=== PATIENT | female | born 1965 | race Caucasian/White ===

== ENCOUNTER 2017-09-02 13:09 | Emergency (ER) | payer OTHER, BC ==
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
--- NOTE | 2017-09-02 13:39 | XR ---
EXAMINATION TYPE: XR foot complete RT DATE OF EXAM: 09/02/2017 CLINICAL HISTORY: pain TECHNIQUE: Frontal, lateral and oblique images of the right foot are obtained. COMPARISON: None. FINDINGS: There is no acute fracture/dislocation evident. The joint spaces appear within normal woods its. Correlate for soft tissue injury. No radiopaque foreign body. IMPRESSION: There is no acute fracture or dislocation. ICD 10 NO FRACTURE, INITIAL EVALUATION
--- NOTE | 2017-09-02 13:41 | XR ---
EXAMINATION TYPE: XR chest 1V portable DATE OF EXAM: 09/02/2017 COMPARISON: NONE HISTORY: Pain TECHNIQUE: Single frontal view of the chest is obtained. FINDINGS: There is no focal air space opacity, pleural effusion, or pneumothorax seen. The cardiac silhouette size is within normal limits. The osseous structures are intact. IMPRESSION: No acute process.
--- NOTE | 2017-09-02 13:41 | XR ---
EXAMINATION TYPE: XR pelvis AP view DATE OF EXAM: 09/02/2017 CLINICAL HISTORY: pain TECHNIQUE: Single view the pelvis is submitted. FINDINGS: No evidence for fracture, dislocation or bony lesion. Joint spaces are well-preserved. S I joints appear symmetric. IMPRESSION: 1. No acute fracture or dislocation seen. ICD 10 NO FRACTURE, INITIAL EVALUATION
[2017-09-02 14:54] VITALS: BP 128/72; PULSE 88; RESP 16; TEMP 97.8
== END 2017-09-02 14:30 | disposition home or self-care (01) ==
LOC: EC 13:09
DX: S90.31XA Contusion of right foot, initial encounter (principal); S10.91XA Abrasion of unspecified part of neck, initial encounter; Z79.899 Other long term (current) drug therapy; Z98.890 Other specified postprocedural states; V49.50XA Passenger injured in collision with unspecified motor vehicles in traffic accident, initial encounter; Y92.488 Other paved roadways as the place of occurrence of the external cause
CPT/HCPCS: 71045; 72170; 99284

== ENCOUNTER 2023-10-30 16:58 | Inpatient (IN) | payer BC, OTHER ==
--- NOTE | 2023-10-30 17:23 | ED ---
Overdose HPI - General Source: patient, RN notes reviewed Mode of arrival: ambulatory Limitations: no limitations <Laura hTao - Last Filed: 10/30/23 17:20> - General Source: patient, RN notes reviewed Mode of arrival: ambulatory Limitations: no limitations <Carol Hughes - Last Filed: 10/31/23 03:18> - General Chief Complaint: Overdose Stated Complaint: Intentional overdose Time Seen by Provider: 10/30/23 17:19 - History of Present Illness Initial Comments: Quick noteis a 58-year-old female with a history of depression presents emergency department chief complaint of a tensional overdose. States that she has been feeling depressed and "tired "when she took lead to bottles of various prescribed medications to herself and her . States that she attempted to make herself throw up at home and was unsuccessful. (Laura Thao) 58-year-old female presented to the ER with a chief complaint of intentional overdose. Patient reports she is going through a difficult divorce with her and is having suicidal thoughts. HPI is limited as patient appears intoxicated and is having difficulty remembering exact times of ingestions. She states she took a bunch of pills about an hour prior to arrival. Patient did bring a bag of medications including amoxicillin 875 mg, Thomas 7.5, pantoprazole 40 mg, cryoheptadine 4 mg, Prozac 40 mg. She also reports she had 1 beer today. She denies any headache, cough, congestion, chest pain, shortness of breath, abdominal pain, constipation/diarrhea, urinary complaints or peripheral edema. (Carol Hughes) - Related Data Home Medications Medication Instructions Recorded Confirmed No Known Home Medications 10/30/23 10/30/23 Allergies Allergy/AdvReac Type Severity Reaction Status Date / Time No Known Allergies Allergy Verified 10/30/23 18:28 Review of Systems ROS Other: All systems not noted in ROS Statement are negative. <Laura Thao - Last Filed: 10/30/23 17:20> ROS Other: All systems not noted in ROS Statement are negative. <Carol Hughes - Last Filed: 10/31/23 03:18> ROS Statement: Those systems with pertinent positive or pertinent negative responses have been documented in the HPI. Past Medical History Past Medical History: No Reported History History of Any Multi-Drug Resistant Organisms: None Reported Past Surgical History: No Surgical Hx Reported Additional Past Surgical History / Comment(s): bunion removal (R) foot. Past Psychological History: No Psychological Hx Reported Smoking Status: Never smoker Past Alcohol Use History: None Reported Past Drug Use History: None Reported <Stieler,Laura - Last Filed: 10/30/23 17:20> General Exam Limitations: no limitations <Stieler,Laura - Last Filed: 10/30/23 17:20> Limitations: no limitations General appearance: alert, other (intoxicated- slurring words) Head exam: Present: atraumatic, normocephalic, normal inspection Eye exam: Present: normal appearance, PERRL, EOMI, other (2mm bilateral pupil size). Absent: scleral icterus, conjunctival injection, periorbital swelling Pupils: Present: normal accommodation ENT exam: Present: normal exam, mucous membranes moist Respiratory exam: Present: normal lung sounds bilaterally. Absent: respiratory distress, wheezes, rales, rhonchi, stridor Cardiovascular Exam: Present: normal rhythm, tachycardia, normal heart sounds GI/Abdominal exam: Present: soft, normal bowel sounds. Absent: distended, tenderness, guarding, rebound, rigid Extremities exam: Present: normal inspection, full ROM, normal capillary refill. Absent: tenderness, pedal edema, joint swelling, calf tenderness Neurological exam: Present: altered (intoxicated. slurring words.) Psychiatric exam: Present: suicidal ideation Skin exam: Present: warm, dry, intact, normal color. Absent: rash <Carol Hughes - Last Filed: 10/31/23 03:18> - General Exam Comments Initial Comments: Visual Physical Exam Vital signs reviewed General: Well-appearing, nontoxic, no acute distress. Head: Normocephalic, atraumatic Eyes: PERRLA, EOMI ENT: Airway patent Chest: Nonlabored breathing Skin: No visual rash, normal skin tone Neuro: Alert and oriented 3 Musculoskeletal: No gross abnormalities (Stieler,Laura) Course <Carol Hughes - Last Filed: 10/31/23 03:18> Vital Signs 10/30/23 10/30/23 10/30/23 17:04 19:10 20:15 Temperature 98.6 F Pulse Rate 114 H 82 Respiratory 16 12 12 Rate Blood Pressure 158/74 75/55 O2 Sat by Pulse 97 95 Oximetry 10/30/23 10/30/23 10/30/23 20:30 20:34 20:48 Temperature Pulse Rate 84 89 Respiratory 12 12 11 L Rate Blood Pressure 85/60 98/75 O2 Sat by Pulse 100 100 Oximetry 10/30/23 10/30/23 10/30/23 21:00 21:46 22:24 Temperature Pulse Rate 82 89 Respiratory 12 14 11 L Rate Blood Pressure 81/59 88/57 O2 Sat by Pulse 100 100 Oximetry 10/31/23 01:00 Temperature Pulse Rate 87 Respiratory 12 Rate Blood Pressure 94/61 O2 Sat by Pulse 98 Oximetry - Reevaluation(s) Reevaluation #1: 10/30/23 19:14 Patient reevaluated. Family at bedside state that she received a text message from patient around 4 PM stating she needed to go to the ER. Family states they believe ingestion was around 3:30 PM. Patient in no signs of acute distress more somnolent than prior evaluation. 10/30/23 20:41 Spoke with poison control who advised on repeat acetaminophen levels and fluids. (Carol Hughes) Medical Decision Making <Laura Thao - Last Filed: 10/30/23 17:20> - Lab Data Result diagrams: 10/30/23 18:52 10/30/23 18:52 - EKG Data -: EKG Interpreted by Me <Carol Hughes - Last Filed: 10/31/23 03:18> - Medical Decision Making I completed the quick note portion of this chart signed Laura Thao PA-C (Laura Thao) Was pt. sent in by a medical professional or institution ([facility], [employer], urgent care, hospital, or shelter...) When possible be specific @ -No Did you speak to anyone other than the patient for history (EMS, parent, family, police, friend...)? What history was obtained from this source @ -Family aiding in HPI and past medical history. Did you review nursing and triage notes (agree or disagree)? Why? @ -I reviewed and agree with nursing and triage notes Were old charts reviewed (outside hosp., previous admission, EMS record, old EKG, old radiological studies, urgent care reports/EKG's, shelter records)? Report findings @ -No old charts were reviewed Differential Diagnosis (chest pain, altered mental status, abdominal pain women, abdominal pain men, vaginal bleeding, weakness, fever, dyspnea, syncope, headache, dizziness, GI bleed, back pain, seizure, CVA, palpatations, mental health, musculoskeletal)? @ -Acetaminophen toxicity, intentional overdose, alcohol intoxication, this list is not meant to be all-inclusive EKG interpreted by me (3pts min.). @ -As above X-rays interpreted by me (1pt min.). @ -None done CT interpreted by me (1pt min.). @ -None done U/S interpreted by me (1pt. min.). @ -None done What testing was considered but not performed or refused? (CT, X-rays, U/S, labs)? Why? @ -None What meds were considered but not given or refused? Why? @ -None Did you discuss the management of the patient with other professionals (professionals i.e. , PA, [employer], lab, RT, psych nurse, social insurance administrator, business intelligence director, teacher, articulation officer, correctional counselor/case manager)? Give summary @ -Yes, case discussed with poison control who advised repeat acetaminophen level and EKG. Dr. Arana spoke with Dr. Jo Neely, who accepts medical admission. Was smoking cessation discussed for >3mins.? @ -No Was critical care preformed (if so, how long)? @ -No Were there social determinants of health that impacted care today? How? (Homelessness, low income, unemployed, alcoholism, drug addiction, transportation, low edu. Level, literacy, decrease access to med. care, retirement, rehab)? @ -No Was there de-escalation of care discussed even if they declined (Discuss DNR or withdrawal of care, Hospice)? DNR status @ -No What co-morbidities impacted this encounter? (DM, HTN, Smoking, COPD, CAD, Cancer, CVA, ARF, Chemo, Hep., AIDS, mental health diagnosis, sleep apnea, morbid obesity)? @ -Suicidal Was patient admitted / discharged? Hospital course, mention meds given and route, prescriptions, significant lab abnormalities, going to OR and other pertinent info. @ -Admitted. 58-year-old female presented to the ER with a chief complaint of intentional overdose. Upon examination, patient appeared intoxicated and slurring words. Patient having difficulty remembering events and exactly what medications/how much she took. Vitals upon arrival significant for temperature 98.6F, heart rate 114, respirations 16, blood pressure 158/74, O2 sat 97% on room air. Laboratory studies obtained. CBC unremarkable. CMP significant for Cl 108, BUN 22, AST 25, AST 23, Mag 2.0. Salicylates <1.0, acetaminophen 20 repeat 15, serum alcohol <10. Throughout stay in the ER patient had hypotensive epis odes reaching 75/55. Patient received multiple doses of IV Narcan and fluid boluses in ER with improvement. Admission considered for observation and psych consult. Patient started on maintenance fluids. Dr. Arana spoke with Dr. Osorio who accepts medical admission. Psych on consult. Patient admitted on suicide precautions. Case discussed with ED attending, Dr. Arana. Undiagnosed new problem with uncertain prognosis? @ -No Drug Therapy requiring intensive monitoring for toxicity (Heparin, Nitro, Insulin, Cardizem)? @ -No Were any procedures done? @ -No Diagnosis/symptom? @ -Intentional overdose/suicide ideation Acute, or Chronic, or Acute on Chronic? @ -Acute Uncomplicated (without systemic symptoms) or Complicated (systemic symptoms)? @ -Complicated Side effects of treatment? @ -No Exacerbation, Progression, or Severe Exacerbation? @ -No Poses a threat to life or bodily function? How? (Chest pain, [place], [place], pneumonia, PE, COPD, DKA, ARF, appy, cholecystitis, CVA, Diverticulitis, Homicidal, Suicidal, threat to staff... and all critical care pts) @ -Yes intentional overdose and suicidal. (Carol Hughes) - Lab Data Lab Results 10/30/23 10/30/23 10/30/23 Range/Units 18:52 18:52 20:23 WBC 7.9 (3.8-10.6) k/uL RBC 4.41 (3.80-5.40) m/uL Hgb 14.0 (11.4-16.0) gm/dL Hct 42.6 (34.0-46.0) % MCV 96.7 (80.0-100.0) fL MCH 31.7 (25.0-35.0) pg MCHC 32.7 (31.0-37.0) g/dL RDW 13.0 (11.5-15.5) % Plt Count 233 (150-450) k/uL MPV 7.6 Neutrophils % 71 % Lymphocytes % 22 % Monocytes % 4 % Eosinophils % 1 % Basophils % 1 % Neutrophils # 5.6 (1.3-7.7) k/uL Lymphocytes # 1.8 (1.0-4.8) k/uL Monocytes # 0.3 (0-1.0) k/uL Eosinophils # 0.1 (0-0.7) k/uL Basophils # 0.1 (0-0.2) k/uL Sodium 140 (137-145) mmol/L Potassium 4.0 (3.5-5.1) mmol/L Chloride 108 H (98-107) mmol/L Carbon Dioxide 25 (22-30) mmol/L Anion Gap 7 mmol/L BUN 22 H (7-17) mg/dL Creatinine 0.79 (0.52-1.04) mg/dL Est GFR (CKD-EPI)AfAm >90 (>60 ml/min/1.73 sqM) Est GFR (CKD-EPI)NonAf 83 (>60 ml/min/1.73 sqM) Glucose 102 H (74-99) mg/dL Calcium 9.4 (8.4-10.2) mg/dL Magnesium 2.0 (1.6-2.3) mg/dL Total Bilirubin 0.4 (0.2-1.3) mg/dL AST 25 (14-36) U/L ALT 23 (4-34) U/L Alkaline Phosphatase 79 (38-126) U/L Total Protein 6.5 (6.3-8.2) g/dL Albumin 3.9 (3.5-5.0) g/dL Urine Color Urine Appearance (Clear) Urine pH (5.0-8.0) Ur Specific [place] (1.001-1.035) Urine Protein (Negative) Urine Glucose (UA) (Negative) Urine Ketones (Negative) Urine Blood (Negative) Urine Nitrite (Negative) Urine Bilirubin (Negative) Urine Urobilinogen (<2.0) mg/dL Ur Leukocyte Esterase (Negative) Urine RBC (0-5) /hpf Urine WBC (0-5) /hpf Ur Squamous Epith Cells (0-4) /hpf Urine Mucus (None) /hpf Salicylates <1.0 mg/dL Urine Opiates Screen (NotDetected) Ur Oxycodone Screen (NotDetected) Urine Methadone Screen (NotDetected) Acetaminophen 20.2 15.5 ug/mL Ur Barbiturates Screen (NotDetected) U Tricyclic Antidepress (NotDetected) Ur Phencyclidine Scrn (NotDetected) Ur Amphetamines Screen (NotDetected) U Methamphetamines Scrn (NotDetected) U Benzodiazepines Scrn (NotDetected) Urine Cocaine Screen (NotDetected) U Marijuana (THC) Screen (NotDetected) Serum Alcohol <10 mg/dL 10/30/23 Range/Units 21:07 WBC (3.8-10.6) k/uL RBC (3.80-5.40) m/uL Hgb (11.4-16.0) gm/dL Hct (34.0-46.0) % MCV (80.0-100.0) fL MCH (25.0-35.0) pg MCHC (31.0-37.0) g/dL RDW (11.5-15.5) % Plt Count (150-450) k/uL MPV Neutrophils % % Lymphocytes % % Monocytes % % Eosinophils % % Basophils % % Neutrophils # (1.3-7.7) k/uL Lymphocytes # (1.0-4.8) k/uL Monocytes # (0-1.0) k/uL Eosinophils # (0-0.7) k/uL Basophils # (0-0.2) k/uL Sodium (137-145) mmol/L Potassium (3.5-5.1) mmol/L Chloride (98-107) mmol/L Carbon Dioxide (22-30) mmol/L Anion Gap mmol/L BUN (7-17) mg/dL Creatinine (0.52-1.04) mg/dL Est GFR (CKD-EPI)AfAm (>60 ml/min/1.73 sqM) Est GFR (CKD-EPI)NonAf (>60 ml/min/1.73 sqM) Glucose (74-99) mg/dL Calcium (8.4-10.2) mg/dL Magnesium (1.6-2.3) mg/dL Total Bilirubin (0.2-1.3) mg/dL AST (14-36) U/L ALT (4-34) U/L Alkaline Phosphatase (38-126) U/L Total Protein (6.3-8.2) g/dL Albumin (3.5-5.0) g/dL Urine Color Colorless Urine Appearance Clear (Clear) Urine pH 5.5 (5.0-8.0) Ur Specific [place] 1.011 (1.001-1.035) Urine Protein Negative (Negative) Urine Glucose (UA) Negative (Negative) Urine Ketones Negative (Negative) Urine Blood Negative (Negative) Urine Nitrite Negative (Negative) Urine Bilirubin Negative (Negative) Urine Urobilinogen <2.0 (<2.0) mg/dL Ur Leukocyte Esterase Moderate H (Negative) Urine RBC <1 (0-5) /hpf Urine WBC 13 H (0-5) /hpf Ur Squamous Epith Cells 1 (0-4) /hpf Urine Mucus Rare H (None) /hpf Salicylates mg/dL Urine Opiates Screen Detected H (NotDetected) Ur Oxycodone Screen Not Detected (NotDetected) Urine Methadone Screen Not Detected (NotDetected) Acetaminophen ug/mL Ur Barbiturates Screen Not Detected (NotDetected) U Tricyclic Antidepress Not Detected (NotDetected) Ur Phencyclidine Scrn Not Detected (NotDetected) Ur Amphetamines Screen Not Detected (NotDetected) U Methamphetamines Scrn Not Detected (NotDetected) U Benzodiazepines Scrn Not Detected (NotDetected) Urine Cocaine Screen Not Detected (NotDetected) U Marijuana (THC) Screen Not Detected (NotDetected) Serum Alcohol mg/dL - EKG Data EKG Comments: EKG taken at 18: 58 showing sinus tachycardia with T wave inversions in lead III. No other acute ST segment or T wave abnormalities. Ventricular rate 112, CT interval 147, QRS duration 90, QT/QTc 331/398. EKG at 20: 28 showing a sinus rhythm inverted T waves in lead III and V2. Ventricular rate 86, CT interval 152, QRS duration 98, QT/QTc 369/413. (Carol Hughes) Disposition <Laura Thao - Last Filed: 10/30/23 17:20> Time of Disposition: 23:49 <Carol Hughes - Last Filed: 10/31/23 03:18> Clinical Impression: Intentional overdose, Suicidal ideation Disposition: ADMITTED IP TO THIS HOSP Condition: Fair
[2023-10-30 18:14] VITALS: TEMP 98.6
[2023-10-30 19:06] LABS: Basophils # (A) 0.1 k/uL (0-0.2); Basophils % (A) 1 %; Eosinophils # (A) 0.1 k/uL (0-0.7); Eosinophils % (A) 1 %; HCT 42.6 % (34.0-46.0); Lymphocytes # (A) 1.8 k/uL (1.0-4.8); Lymphocytes % (A) 22 %; MCH 31.7 pg (25.0-35.0); MCHC 32.7 g/dL (31.0-37.0); MCV 96.7 fL (80.0-100.0); Mean Platelet Volume 7.6; Monocytes # (A) 0.3 k/uL (0-1.0); Monocytes % (A) 4 %; Neutrophils # (A) 5.6 k/uL (1.3-7.7); Neutrophils % (A) 71 %; Platelet Count 233 k/uL (150-450); RBC 4.41 m/uL (3.80-5.40); WBC 7.9 k/uL (3.8-10.6)
[2023-10-30] MEDS: NALOXONE 0.4 MG/ML 1 ML VIAL IVP STA ×3 (19:10→22:24)
[2023-10-30] MEDS: SODIUM CHLORIDE 0.9% 1,000 ML IV STA ×3 (19:16→21:51)
[2023-10-30 19:23] LABS: ALT 23 U/L (4-34); AST 25 U/L (14-36); Acetaminophen 20.2 ug/mL; African American GFR (CKD) >90 (>60 ml/min/1.73 sqM); Albumin 3.9 g/dL (3.5-5.0); Alcohol <10 mg/dL; Alkaline Phosphatase 79 U/L (38-126); Anion Gap 7 mmol/L; Blood Urea Nitrogen 22 mg/dL (7-17); Calcium 9.4 mg/dL (8.4-10.2); Carbon Dioxide 25 mmol/L (22-30); Chloride 108 mmol/L (98-107); Glucose 102 mg/dL (74-99); Non-African American GFR(CKD) 83 (>60 ml/min/1.73 sqM); Salicylate <1.0 mg/dL; Sodium 140 mmol/L (137-145); Total Bilirubin 0.4 mg/dL (0.2-1.3); Total Protein 6.5 g/dL (6.3-8.2)
[2023-10-30] MEDS: DEXTROSE 5%-0.45% NACL 1,000 ML IV ONE (20:46)
[2023-10-30 21:45] LABS: Appearance,Urine Clear (Clear); Bilirubin,Urine Negative (Negative); Blood,Urine Negative (Negative); Color,Urine Colorless; Glucose,Urine (UA) Negative (Negative); Ketones,Urine Negative (Negative); Leukocyte Esterase,Urine Moderate (Negative); Mucus,Urine Rare /hpf; Nitrite,Urine Negative (Negative); PH, Urine 5.5 (5.0-8.0); Protein,Urine Negative (Negative); RBC,Urine <1 /hpf (0-5); Specific Gravity,Urine 1.011 (1.001-1.035); Squamous Epithelial Cell,Urine 1 /hpf (0-4); Urobilinogen,Urine <2.0 mg/dL (<2.0); WBC,Urine 13 /hpf (0-5)
[2023-10-30 22:00] LABS: Amphetamine Screen,Urine Not Detected (NotDetected); Barbiturate Screen,Urine Not Detected (NotDetected); Benzodiazepines Screen,Urine Not Detected (NotDetected); Cocaine Screen,Urine Not Detected (NotDetected); Methadone Screen, Urine Not Detected (NotDetected); Opiate Screen,Urine Detected (NotDetected); Oxycodone Screen, Urine Not Detected (NotDetected); Phencyclidine Screen,Urine Not Detected (NotDetected); Tricyclic Antidepressant,Urine Not Detected (NotDetected); Urn Cannabinoid Scrn Not Detected (NotDetected)
[2023-10-30] MEDS ORDERED: NALOXONE 0.4 MG/ML 1 ML VIAL IV PRN (23:45)
--- NOTE | 2023-10-31 03:03 | P.HPIM ---
History of Present Illness H&P Date: 10/31/23 Chief Complaint: Drug overdose 58-year-old female with history of depression During my interview with the patient she still seems to have some mild degree of confusion and disorientation. Patient's sister at bedside. This seems like the patient is going through a hard time due to social stressors she called her sister notifying her that she took too many pills and worried about hurting herself for which she was brought into the hospital for evaluation. At this time the patient admits that she took around 4 pills of Wendell unknown strength, 5 pills of amoxicillin and 5 or 6 pills of Prozac all of unknown strength she claims that these are all bottles and there were some leftovers and then that she ingested she immediately felt some remorse and decided to notify h er sister seeking help. She admits that she took it in the moment of despair to gain attention she immediately felt her remorse of doing so and induced self vomiting and vomited the pills. She claims that she feels fine at the moment and she is is asking when she will be released. ED documented that patient was appearing intoxicated initially upon presentation with difficulty remembering exact events. She brought medication bottles of Wendell 7.5 Protonix 40 mg amoxicillin 875 mg Prozac 40 mg Currently patient denies any headache changes in vision or hearing denies any focal neurodeficits denies any chest pain trouble breathing nausea vomiting abdominal pain changes in bowel or urinary habits denies any GI bleeding Patient denies any tobacco smoking illicit drugs or heavy alcohol review of systems Pertinent positives as noted in HPI. All other systems were reviewed and are negative on exam Constitutional: No acute distress, conversant, pleasant Eyes: Anicteric sclerae, moist conjunctiva, Pupils equal round reactive to light ENMT: NC/AT Oropharynx clear, no erythema, or exudates Neck: Supple, no masses, or JVD No carotid bruits No thyromegaly Lungs: Clear to auscultation Clear to percussion Normal respiratory effort, no accessory muscle use Cardiovascular: Heart regular in rate and rhythm, No murmurs, gallops, or rubs No peripheral edema Abdominal: Soft Nontender, no guarding, rebound or rigidity Abdomen moving with respiration Normoactive bowel sounds Space Extremities: No digital cyanosis No clubbing Pedal pulses intact and symmetrical Radial pulses intact and symmetrical No calf tenderness Psychiatric: Alert and oriented to person, place and time Space Neuro Muscles Strength 5/5 in all 4 extremities Sensation to light touch grossly present throughout Cranial nerves II-XII grossly intact Past Medical History Past Medical History: No Reported History History of Any Multi-Drug Resistant Organisms: None Reported Past Surgical History: No Surgical Hx Reported Additional Past Surgical History / Comment(s): bunion removal (R) foot. Past Psychological History: No Psychological Hx Reported Smoking Status: Never smoker Past Alcohol Use History: None Reported Past Drug Use History: None Reported Medications and Allergies Home Medications Medication Instructions Recorded Confirmed Type No Known Home Medications 10/30/23 10/30/23 History Allergies Allergy/AdvReac Type Severity Reaction Status Date / Time No Known Allergies Allergy Verified 10/30/23 18:28 Physical Exam Vitals: Vital Signs Temp Pulse Resp BP Pulse Ox 10/31/23 01:00 87 12 94/61 98 10/30/23 22:24 11 L 10/30/23 21:46 89 14 88/57 100 10/30/23 21:00 82 12 81/59 100 10/30/23 20:48 89 11 L 98/75 100 10/30/23 20:34 12 10/30/23 20:30 84 12 85/60 100 10/30/23 20:15 82 12 75/55 95 10/30/23 19:10 12 10/30/23 17:04 98.6 F 114 H 16 158/74 97 Intake and Output 10/30/23 10/30/23 10/31/23 14:59 22:59 06:59 Other: Weight 58.967 kg Results CBC & Chem 7: 10/30/23 18:52 10/30/23 18:52 Labs: Abnormal Lab Results - Last 24 Hours (Table) 10/30/23 10/30/23 Range/Units 18:52 21:07 Chloride 108 H (98-107) mmol/L BUN 22 H (7-17) mg/dL Glucose 102 H (74-99) mg/dL Ur Leukocyte Esterase Moderate H (Negative) Urine WBC 13 H (0-5) /hpf Urine Mucus Rare H (None) /hpf Urine Opiates Screen Detected H (NotDetected) Assessment and Plan Assessment: 58-year-old female with depression coming in with her sister for evaluation after intentional drug overdose and suicidal attempt I discussed case with ED doctor and accepted the admission for drug overdose for close monitoring with anticipated length of stay less than 2 midnights Drug overdose Intentional suicidal attempt with drug overdose Neurochecks EKG shows no prolonged QT interval IV fluid hydration normal saline Continue with neurochecks Fall precautions Suicidal precautions Psych evaluation Patient claims that she took few pills of amoxicillin, Prozac, and Wendell Monitor vital signs Cardiac monitoring Blood work unremarkable showing white count 7.9 hemoglobin 14 Sodium 140 potassium 4 BUN 22 creatinine 0.79 Urine drug screen positive for opiates 2 Tylenol levels were obtained both within therapeutic level Serum alcohol negative Salicylate negative Full code DVT prophylaxis heparin subcu 3 times daily
[2023-10-31] MEDS: HEPARIN SODIUM,PORCINE 5,000 UNIT/ML 1 ML VIAL SQ SCH (09:05)
--- NOTE | 2023-10-31 18:01 | P.PN ---
Subjective Progress Note Date: 10/31/23 Hospital course: Patient is a 58-year-old female with a past medical history of depression. She presented to the emergency department overnight on 10/30/2023 with reports of intentional suicide attempt via ingestion of medications. Patient reportedly took 4 pills of Honor 7.5/325 mg tablets, 5 pills of amoxicillin 875 mg tablets, and 5 or 6 pills of Prozac 40 mg tablets. Patient reported taking these medications to intentionally overdose herself in a moment of despair, but states after ingesting them she immediately felt remorse and induced vomiting and called her sister for help. Upon arrival to the emergency department patient underwent evaluation. Vital signs upon arrival show blood pressure 154/74, heart rate 114, respiratory rate 16, temp 98.6 F SpO2 of 97% on room air. EKG was completed showing sinus tachycardia at 112 bpm with no significant T wave or ST abnormalities showing no signs of acute ischemia. QT/QTc within normal limits at 331/398 ms. Labs were completed and reviewed. CBC unremarkable. BMP revealing mild hyperchloremia with chloride of 108 and prerenal azotemia with BUN of 22 otherwise normal findings. Blood glucose was 102. Liver profile unremarkable. Salicylates level was less than 1 and acetaminophen level therapeutic at 20.2 with repeat level drawn 2 hours later decreasing down to 15.5. Serum alcohol less than 10. Urine drug screen positive for opiates. Patient was admitted under our services for continuous cardiac monitoring and overnight observation. Consultation placed to psychiatry for evaluation. Physical exam: Vital signs reviewed and stable. General: Nontoxic, no distress and appears stated age. Derm: Skin warm and dry, normal coloration for ethnicity. Head: Atraumatic, normocephalic and symmetric. Eyes: EOMs intact, no lid lag, and anicteric sclera Mouth: no lip lesions, mucus membranes moist Cardiovascular: regular rate and rhythm with normal S1S2, no murmur, positive posterior tibial pulses bilaterally, and cap refill < 2 seconds. Lungs: Respirations even, regular, and unlabored on room air. Lungs CTA bilaterally, no rhonchi, no rales, no wheezing, and no accessory muscle usage. Abdominal: soft, nontender to palpation, no guarding, no appreciable organomegaly Ext: ROM intact. No gross muscle atrophy, no edema, no contractures Neuro: Speech clear, face symmetrical and CN II-XII grossly intact with no noted focal neuro deficits Psych: Alert and oriented to person, place, time, and situation. Appropriate and pleasant affect. Assessment and Plan of Care: Drug overdose Intentional suicidal attempt with drug overdose -Neurochecks -EKG shows no prolonged QT interval -Continue IV fluid hydration 0.9% normal saline at 100 cc/h. -Fall precautions -Suicidal precautions -Psychiatry consulted, awaiting their evaluation. -Monitor vital signs -Cardiac monitoring Patient is cleared from medical perspective for discharge to inpatient psychiatric unit. Awaiting psychiatrist to evaluate. Psychiatry team was notified of patient's medical clearance. CODE STATUS: Full code DVT prophylaxis: Heparin Anticipated discharge date: Patient medically cleared for discharge to inpatient psychiatric unit. Anticipated discharge place: Inpatient psychiatric unit. Patient was seen independently by Nurse Pracitioner. This document was prepared using [employer] dictation software. Please allow for errors in senior executive compensation analyst, while rare they do occur. I reviewed the documentation as provided by the OSWALD above, who is the original author of this note. I agree with the documented assessment and plan, with the following changes: none Objective - Vital Signs Vital signs: Vital Signs Temp 98.6 F 10/30/23 17:04 Pulse 72 10/31/23 06:00 Resp 16 10/31/23 06:00 BP 102/70 10/31/23 06:00 Pulse Ox 100 10/31/23 06:00 FiO2 Intake & Output 10/30/23 10/31/23 10/31/23 18:59 06:59 18:59 Weight 58.967 kg - Labs CBC & Chem 7: 10/30/23 18:52 10/30/23 18:52 Labs: Abnormal Lab Results - Last 24 Hours (Table) 10/30/23 10/30/23 Range/Units 18:52 21:07 Chloride 108 H (98-107) mmol/L BUN 22 H (7-17) mg/dL Glucose 102 H (74-99) mg/dL Ur Leukocyte Esterase Moderate H (Negative) Urine WBC 13 H (0-5) /hpf Urine Mucus Rare H (None) /hpf Urine Opiates Screen Detected H (NotDetected)
[2023-10-31 21:18] VITALS: BP 119/89; PULSE 86; RESP 17
--- NOTE | 2023-11-01 07:52 | P.DS ---
Providers Date of admission: 10/30/23 23:45 Expected date of discharge: 10/31/23 Attending physician: Brenda Osorio MD Consults: 10/30/23 23:45 Consult Physician Urgent Consulting Provider: Kwame Maldonado Consult Reason/Comments: SI/interntional overdose Do you want consulting provider notified?: Already Contacted [facility] Course: Discharge Diagnosis: Drug overdose Intentional suicidal attempt with drug overdose Hospital Course: Patient is a 58-year-old female with a past medical history of depression. She presented to the emergency department overnight on 10/30/2023 with reports of intentional suicide attempt via ingestion of medications. Patient reportedly took 4 pills of Cum[place] 7.5/325 mg tablets, 5 pills of amoxicillin 875 mg tablets, and 5 or 6 pills of Prozac 40 mg tablets. Patient reported taking these medications to intentionally overdose herself in a moment of despair, but states after ingesting them she immediately felt remorse and induced vomiting and called her sister for help. Upon arrival to the emergency department patient underwent evaluation. Vital signs upon arrival show blood pressure 154/74, heart rate 114, respiratory rate 16, temp 98.6 F SpO2 of 97% on room air. EKG was completed showing sinus tachycardia at 112 bpm with no significant T wave or ST abnormalities showing no signs of acute ischemia. QT/QTc within normal limits at 331/398 ms. Labs were completed and reviewed. CBC unremarkable. BMP revealing mild hyperchloremia with chloride of 108 and prerenal azotemia with BUN of 22 otherwise normal findings. Blood glucose was 102. Liver profile unremarkable. Salicylates level was less than 1 and acetaminophen level therapeutic at 20.2 with repeat level drawn 2 hours later decreasing down to 15.5. Serum alcohol less than 10. Urine drug screen positive for opiates. Patient was admitted under our services for continuous cardiac monitoring and overnight observation. Consultation placed to psychiatry for evaluation. Patient was cleared from medical perspective for discharge to inpatient psychiatric unit. Psychiatry team was notified of patient's medical clearance and accepted patient to inpatient psychiatric unit.. Physical exam: To review full detailed physical examination, please see progress note written earlier in the day. A total of 31 minutes of time were spent preparing this complex discharge summary. Pt was discharged on 10/31/2023 8:25 PM. Patient was seen independently by Nurse Practitioner. This document was prepared using [employer] dictation software. Please allow for errors in advance agent while rare they do occur. I reviewed the documentation as provided by the OSWALD above, who is the original author of this note. I agree with the documented assessment and plan, with the following changes: none Patient Condition at Discharge: Stable Plan - Discharge Summary New Discharge Prescriptions: No Action buPROPion XL [Wellbutrin XL] 300 mg PO DAILY FLUoxetine HCL [Prozac] 40 mg PO DAILY Discharge Medication List FLUoxetine HCL [Prozac] 40 mg PO DAILY 10/31/23 [History] buPROPion XL [Wellbutrin XL] 300 mg PO DAILY 10/31/23 [History] Follow up Appointment(s)/Referral(s): Ignacio Putnam DO [Primary Care Provider] - 1-2 days Activity/Diet/Wound Care/Special Instructions: Patient is medically cleared for discharge to inpatient psychiatric unit at this time. Psychiatry team has been notified and awaiting their evaluation Discharge Disposition: TRANSFER TO PSYCH HOSP/UNIT
== END 2023-10-31 23:24 | DRG 918 ==
LOC: EC 16:58 → 5NMEDONC 23:45 → UNDODISIN 11-01 00:49
PROVIDERS: ADMIT Internal Medicine; ATTEND Internal Medicine
DX: T39.1X2A Poisoning by 4-Aminophenol derivatives, intentional self-harm, initial encounter (principal); T43.222A Poisoning by selective serotonin reuptake inhibitors, intentional self-harm, initial encounter; T36.0X2A Poisoning by penicillins, intentional self-harm, initial encounter; Z11.52 Encounter for screening for COVID-19; E87.8 Other disorders of electrolyte and fluid balance, not elsewhere classified; F32.A Depression, unspecified; I95.9 Hypotension, unspecified; R00.0 Tachycardia, unspecified; R79.89 Other specified abnormal findings of blood chemistry
CPT/HCPCS: 36415; 80053; 80143; 80179; 80306; 80320; 81001; 83735; 85025; 87636; 93005; 96361; 96374; 96376; 99285

== ENCOUNTER 2023-10-31 22:27 | Inpatient (IN) | payer BC ==
[2023-10-31] MEDS ORDERED: traZODone HCL 50 MG TAB PO PRN (22:42)
[2023-10-31] MEDS ORDERED: LORazepam 2 MG/ML INJ IM PRN (22:42)
[2023-10-31] MEDS ORDERED: ACETAMINOPHEN TAB 325 MG TAB PO PRN (22:42)
[2023-10-31] MEDS ORDERED: IBUPROFEN 600 MG TAB PO PRN (22:42)
[2023-10-31] MEDS ORDERED: LORazepam 1 MG TAB PO PRN (22:42)
[2023-10-31] MEDS ORDERED: MAG HYDROX/AL HYDROX/SIMETH 355 ML BOTTLE PO PRN (22:42)
[2023-10-31] MEDS ORDERED: MAGNESIUM HYDROXIDE 2,400 MG/30 ML CUP PO PRN (22:42)
[2023-11-01] MEDS: buPROPion XL 300 MG TAB.ER.24H PO SCH (08:50)
[2023-11-01] MEDS: FLUoxetine HCL 20 MG CAP PO SCH (08:50)
[2023-11-01] MEDS ORDERED: NICOTINE 14MG/24HR PATCH TRANSDERM SCH (09:00)
[2023-11-01] MEDS ORDERED: traZODone HCL 50 MG TAB PO PRN (12:02)
[2023-11-01] MEDS: SERTRALINE 50 MG TAB PO SCH (12:12)
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
--- NOTE | 2023-11-01 16:09 | P.CONS ---
History of Present Illness - Reason for Consult Consult date: 11/01/23 Medical H&P Requesting physician: Kwame Maldonado - History of Present Illness History of Presenting Illness: Patient is a 58-year-old female with a past medical history of depression. She presented to the emergency department overnight on 10/30/2023 with reports of intentional suicide attempt via ingestion of medications. Patient reportedly took 4 pills of Bancroft 7.5/325 mg tablets, 5 pills of amoxicillin 875 mg tablets, and 5 or 6 pills of Prozac 40 mg tablets. Patient reported taking these medications to intentionally overdose herself in a moment of despair, but states after ingesting them she immediately felt remorse and induced vomiting and called her sister for help. She was hospitalized overnight and transferred to inpatient mental health unit. She is currently admitted under psychiatry team to mental health unit. We were consulted for medical evaluation and completion of medical H&P. Patient seen and fully evaluated on mental health unit, she was ambulatory in halls unassisted with a steady gait. Patient reports feeling distressed over medication changes being and states that she just wants to go home. She currently reports feeling depressed and overwhelmed but currently denies having any suicidal or homicidal ideations. She denies having any visual or auditory hallucinations. Patient also denies having any other complaints including headache, lightheadedness, dizziness, chest pain, palpitations, shortness of breath, cough or congestion, nausea, vomiting, or abdominal pain at this time. Review of systems: Pertinent positives and negatives as discussed in HPI, a complete review of systems was performed and all other systems are negative. Physical exam: Vital signs reviewed and stable. General: Nontoxic, no distress and appears stated age. Derm: Skin warm and dry, normal coloration for ethnicity. Head: Atraumatic, normocephalic and symmetric. Eyes: EOMs intact, no lid lag, and anicteric sclera Mouth: no lip lesions, mucus membranes moist Cardiovascular: regular rate and rhythm with normal S1S2, no murmur, positive posterior tibial pulses bilaterally, and cap refill < 2 seconds. Lungs: Respirations even, regular, and unlabored on room air. Lungs CTA bilaterally, no rhonchi, no rales, no wheezing, and no accessory muscle usage. Abdominal: soft, nontender to palpation, no guarding, no appreciable organomegaly Ext: ROM intact. No gross muscle atrophy, no edema, no contractures Neuro: Speech clear, face symmetrical and CN II-XII grossly intact with no noted focal neuro deficits Psych: Alert and oriented to person, place, time, and situation. Depressed affect. Assessment and Plan of Care: Drug overdose Intentional suicidal attempt with drug overdose -EKG reviewed showing sinus tachycardia at 112 bpm with no significant T wave or ST abnormalities showing no signs of acute ischemia. QT/QTc within normal limits at 331/398 ms. -Labs were completed and reviewed. CBC unremarkable. BMP revealing mild hyper chloremia with chloride of 108 and prerenal azotemia with BUN of 22 otherwise normal findings. Blood glucose was 102. Liver profile unremarkable. Salicylates level < 1 and acetaminophen level therapeutic at 20.2 with repeat level drawn 2 hours later decreasing down to 15.5. Serum alcohol less than 10. -TSH normal findings at 0.646. -Urine drug screen positive for opiates. Depression with intentional suicidal attempt -Management per primary admitting psychiatric team. Vital Signs reviewed and stable with blood pressure 123/63, heart rate 85, respiratory rate 18, temp 97.9 F, and SpO2 of 99% on room air. Thank you for allowing us to participate in the care of this pleasant patient. Do not hesitate to contact us with questions. Someone can be reached from the [facility] hospitalist group all hours of the day at [phone] or via [employer]. Patient was seen independently by Nurse Practitioner. This document was prepared using [employer] dictation software. Please allow for errors in freight air brake fitter while rare they do occur. Sony German NP rendered care for this patient independently, reviewed the findings and plan as documented in the note above. I did not physically speak with or examine the patient on this date. Sony German NP rendered care for this patient independently, reviewed the findings and plan as documented in the note above. I did not physically speak with or examine the patient on this date. Past Medical History Past Medical History: No Reported History History of Any Multi-Drug Resistant Organisms: None Reported Past Surgical History: No Surgical Hx Reported Additional Past Surgical History / Comment(s): bunion removal (R) foot. Past Anesthesia/Blood Transfusion Reactions: No Reported Reaction Past Psychological History: No Psychological Hx Reported Smoking Status: Never smoker Past Alcohol Use History: Occasional Past Drug Use History: None Reported - Past Family History Father Family Medical History: No Reported History Medications and Allergies Home Medications Medication Instructions Recorded Confirmed Type FLUoxetine HCL [Prozac] 40 mg PO DAILY 10/31/23 10/31/23 History buPROPion XL [Wellbutrin XL] 300 mg PO DAILY 10/31/23 10/31/23 History Allergies Allergy/AdvReac Type Severity Reaction Status Date / Time No Known Allergies Allergy Verified 10/30/23 18:28 Physical Exam Vitals: Vital Signs Temp Pulse Resp BP Pulse Ox 11/01/23 07:29 97.9 F 85 18 123/63 99 11/01/23 00:18 97.9 F 75 18 120/74 98 Intake and Output 10/31/23 11/01/23 11/01/23 22:59 06:59 14:59 Other: Weight 58.967 kg 65.2 kg
[2023-11-01 22:04] LABS: Chol/HDL Ratio 2.42 Ratio; LDL Cholesterol,Calculated 107.4 mg/dL (0.0-131.0)
--- NOTE | 2023-11-02 09:59 | P.PN ---
Progress Note - Text Progress Note Date: 11/02/23 Interval History: Patient was seen in the [facility] and was directable and agreeable to speak with sign writer hand in the office. Patient states that she feels a bit better than yesterday. She states yesterday, she was in "culture shock" due to being on the unit. She states that she is concerned for her family, because she has put them through a lot lately. She has talked to her two sisters while here, and that is going good, and she has their support. She claims to be sleeping well, and her appetite is improving. At this time patient denies any suicidal or homicidal ideations, intent or plan. Patient denies any auditory, visual hallucinations and denies any paranoia or delusions. Patient denies any side effects from the medications and has been compliant with meds. MENTAL STATUS EXAM: General Appearance: Patient appears to be stated age is alert, directable, and attempts to cooperate. Patient appears to have fair hygiene and grooming. Dressed in her own clothes, short silver hair. Behavior: Patient is seated without any agitated behavior. taking accountability for her actions today Speech: Patient's speech is fluent and nonpressured. Mood/Affect: Patient reports their mood is sad and anxious, affect is congruent and constricted. Suicidality/Homicidality: Patient denies having any homicidal ideation intent or plan. Denies any suicidal ideations intent or plan Perceptions: Patient denies any visual hallucinations and denies any auditory hallucinations Though content/process: There is no evidence of any delusional thought content and thought process is linear and goal-directed. minimizing. mildly improving Memory and concentration: AOX3, grossly intact for the purposes of this session. Judgment and insight: Improving mildly IMPRESSIONS: suicide attempt by overdose of medication major depressive disorder, without psychotic features anxiety disorder, unspecified PLAN: -Patient is admitted under voluntary status to MHU for stabilization of psychiatric symptoms and safety. Patient has signed adult voluntary form and medication consent and is placed in patient's chart. -Medications : increase Zoloft 100mg daily for mood/anxiety, trazodone 50mg qhs prn for sleep -Ativan and Haldol PRN for agitation/aggression -NRT - not needed as patient is a non smoker. -SW on board for discharge planning. Encourage patient to participate in groups to work on coping skills. Likely discharge Tuesday, if patient continues to improve
[2023-11-03] MEDS: SERTRALINE 100 MG TAB PO SCH (08:00)
--- NOTE | 2023-11-03 11:04 | P.PN ---
Progress Note - Text Progress Note Date: 11/03/23 Interval History: [facility] and was directable and agreeable to speak with appeals writer in the office. Patient states that she is feeling much better today. She is going to groups. She claims to be sleeping well, and her appetite is improving. Box Truck Driver spoke to the patient about discharge planning, patient states that if her is at the home, she can stay with her sister. Social work will set up the plan for a d/c tomorrow. At this time patient denies any suicidal or homicidal ideations, intent or plan. Patient denies any auditory, visual hallucinations and denies any paranoia or delusions. Patient denies any side effects from the medications and has been compliant with meds. MENTAL STATUS EXAM: General Appearance: Patient appears to be stated age is alert, directable, and attempts to cooperate. Patient appears to have fair hygiene and grooming. Dressed in her own clothes, short silver hair. Behavior: Patient is seated without any agitated behavior. taking accountability for her actions today improving, more cooperative Speech: Patient's speech is fluent and nonpressured. Mood/Affect: Patient reports their mood is much better, affect is congruent and improving Suicidality/Homicidality: Patient denies having any homicidal ideation intent or plan. Denies any suicidal ideations intent or plan Perceptions: Patient denies any visual hallucinations and denies any auditory hallucinations Though content/process: There is no evidence of any delusional thought content and thought process is linear and goal-directed.. mildly improving Memory and concentration: AOX3, grossly intact for the purposes of this session. Judgment and insight: Improving mildly IMPRESSIONS: suicide attempt by overdose of medication major depressive disorder, without psychotic features anxiety disorder, unspecified PLAN: -Patient is admitted under voluntary status to MHU for stabilization of psychiatric symptoms and safety. Patient has signed adult voluntary form and medication consent and is placed in patient's chart. -Medications : Zoloft 100mg daily for mood/anxiety, trazodone 50mg qhs prn for sleep -Ativan and Haldol PRN for agitation/aggression -NRT - not needed as patient is a non smoker. -SW on board for discharge planning. Encourage patient to participate in groups to work on coping skills. Likely discharge tomorrow, if patient continues to improve
[2023-11-04 07:38] VITALS: BP 94/55; PULSE 60; RESP 14; TEMP 97.5
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
== END 2023-11-04 12:53 | disposition home or self-care (01) | DRG 918 ==
LOC: UNDOADMIN 22:27 → 3MHU 22:27
PROVIDERS: ADMIT Psychiatry & Neurology Psychiatry; ATTEND Psychiatry & Neurology Psychiatry
DX: T40.2X2A Poisoning by other opioids, intentional self-harm, initial encounter (principal); F33.2 Major depressive disorder, recurrent severe without psychotic features; R45.851 Suicidal ideations; T36.0X2A Poisoning by penicillins, intentional self-harm, initial encounter; T43.222A Poisoning by selective serotonin reuptake inhibitors, intentional self-harm, initial encounter; F41.9 Anxiety disorder, unspecified; Z81.8 Family history of other mental and behavioral disorders; Z79.899 Other long term (current) drug therapy; Z63.5 Disruption of family by separation and divorce; Z71.51 Drug abuse counseling and surveillance of drug abuser
CPT/HCPCS: 80061; 83036; 84443

== ENCOUNTER → 2024-10-19 | Outpatient (CLI) | payer BC ==
--- NOTE | 2024-10-19 09:03 | US ---
EXAMINATION TYPE: US abdomen complete DATE OF EXAM: 10/19/2024 COMPARISON: NONE CLINICAL INDICATION: Female, 59 years old with history of R11.2 NAUSEA WITH VOMITING, UNSPECIFIED; Pt states N&V x 1 week TECHNIQUE: Grayscale and color Doppler imaging of the abdomen was performed. FINDINGS: EXAM MEASUREMENTS: Liver Length: 11.9 cm Gallbladder Wall: 0.2 cm CBD: 0.5 cm, color Doppler imaging was utilized to isolate the common bile duct for measurement. Spleen: 10.1 cm Right Kidney: 9.7 x 4.3 x 4.5 cm Left Kidney: 10.4 x 5.0 x 4.4 cm SPEEDER TENDER NOTES: Pancreas: wnl Liver: wnl, no dilated ducts, masses or cysts. Gallbladder: Echogenic foci with ringdown artifact anterior wall Evidence for sonographic Graff's sign: No CBD: wnl Spleen: wnl Right Kidney: No evidence of hydro Left Kidney: No evidence of hydro Upper IVC: wnl Abd Aorta: wnl The liver is homogenous. The intrahepatic portion of the IVC and proximal abdominal aorta are within normal limits. Common bile duct is unremarkable. The visualized portions of the pancreas are homog enous. The spleen is unremarkable. Kidneys are symmetric and free of hydronephrosis. No renal lesi ons are seen. IMPRESSION: Adherence gallstones versus polyps of the gallbladder wall [facility], , 10/19/2024 9:01 AM
== END | disposition home or self-care (01) ==
LOC: RADUSWWP 08:33
PROVIDERS: ATTEND Emergency Medicine
DX: R11.2 Nausea with vomiting, unspecified (principal)
CPT/HCPCS: 76700